=== PATIENT | male | born 1960 | race Caucasian/White ===

== ENCOUNTER 2018-12-08 16:34 | Emergency (ER) | payer OTHER ==
[~2018-12-08] VITALS: Ht 180.3 cm; Wt 104.3 kg
[2018-12-08] MEDS ORDERED: NORCO 5-325 TA1 EAC1 PO (18:13)
[2018-12-08] MEDS ORDERED: SENNA-DOCUSATE1 EAC1 PO (18:13)
[2018-12-08 19:10] VITALS: BP 127/70
== END 2018-12-08 19:10 | disposition home or self-care (01) ==
LOC: ER 16:34
DX: S82.292A Other fracture of shaft of left tibia, initial encounter for closed fracture (principal); W17.89XA Other fall from one level to another, initial encounter; Y93.89 Activity, other specified; Y92.89 Other specified places as the place of occurrence of the external cause; Y99.0 Civilian activity done for income or pay